=== PATIENT | male | born 1965 | race Caucasian/White ===

== ENCOUNTER → 2017-12-01 09:09 | Outpatient (CLI) | payer OTHER, SELFPAY ==
--- NOTE | 2017-12-01 09:11 | RAD_ITS ---
STUDY: X-RAY - CERVICAL SPINE REASON FOR EXAM: Male, 52 years old. Pain TECHNIQUE: 5 view(s) of the cervical spine were obtained. COMPARISON: None FINDINGS: There is degenerative disc disease and C4-C5, C5-C6, C6-C7. 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 C7-T1 not well seen on the lateral view. Normal anterior atlantoaxial articulation. Normal odontoid process. Normal cervical lordosis. Normal vertebral bodies and endplates. The soft tissue structures are unremarkable. RAD/Cerv Spine 4 or 5 Views IMPRESSION: Degenerative disease of the cervical spine Electronically Signed: Syed Crockett MD at 21:39 EDT Tel , Service support ,
== END ==
PROVIDERS: Family Provider Family Medicine; PCP Family Medicine; Visit Provider Orthopaedic Surgery
DX: M50.321 Other cervical disc degeneration at C4-C5 level (principal)
CPT/HCPCS: 72050